=== PATIENT | male | born 1955 | race Caucasian/White ===

== ENCOUNTER 2017-04-15 13:05 | Emergency (ER) | payer BC ==
[2017-04-15 14:01] VITALS: BP 136/78
[2017-04-15] MEDS ORDERED: Ondansetron ODT TAB* 4 MG PO ONE (14:27)
--- NOTE | 2017-04-15 14:29 | UC ---
Abdominal Pain Male HPI - HPI Summary HPI Summary: Pt presents with c/o nausea and vomiting that began 7-10 days ago. Pt reports that ~ 10 days ago he visited a freind who is hosptialized for c-Difficile and began having first episode of loose stools 1 day after visit to friend. Pt reports that he has generalized abdominal discomfort, nausea, frequent diarrhea , daily 3-4 times per day, occasional nausea, decreased appetite, decreased oral intact of fluid and food. Pt states "he just does not feel well" - History of Current Complaint Chief Complaint: UCGI Stated Complaint: VOMITING,DIARRHEA X 7 DAYS Time Seen by Provider: 04/15/17 14:13 Hx Obtained From: Patient Onset/Duration: Sudden Onset, Lasting Days - 7-10, Still Present Timing: Constant - malaise Severity Initially: Mild Severity Currently: Mild Location: Diffuse Radiates: No Character: Colicy, Dull Aggravating Factor(s):: Food Alleviating Factor(s): Nothing Associated Signs And Symptoms: Positive: Decreased Appetite, Vomiting, Diarrhea - Risk Factors Testicular Torsion: Negative Cardiac Risk Factors: Negative - Allergies/Home Medications Allergies/Adverse Reactions: Allergies Allergy/AdvReac Type Severity Reaction Status Date / Time No Known Allergies Allergy Verified 04/15/17 13:42 Home Medications: Home Medications Esomeprazole Magnesium [Nexium 24Hr] 1 cap QPM 04/15/17 [History Confirmed 04/15] Tamsulosin CAP* [Flomax CAP*] 1 cap QPM 04/15/17 [History Confirmed 04/15/17] PMH/Surg Hx/FS Hx/Imm Hx Previously Healthy: Yes GI/ History: Other - BPH Other GI/ History: BPH - Surgical History Surgical History: None - Family History Known Family History: Positive: Cardiac Disease - Social History Occupation: Retired Lives: With Family Alcohol Use: Rare Substance Use Type: None Smoking Status (MU): Never Smoked Tobacco Have You Smoked in the Last Year: No - Immunization History Most Recent Influenza Vaccination: NONE 2015 Most Recent Tetanus Shot: UTD Most Recent Pneumonia Vaccination: NONE Review of Systems Constitutional: Fatigue, Other - malaise Skin: Negative Eyes: Negative ENT: Negative Respiratory: Negative Cardiovascular: Negative Gastrointestinal: Abdominal Pain, Vomiting, Diarrhea, Nausea Genitourinary: Negative Motor: Negative Neurovascular: Negative Musculoskeletal: Negative Neurological: Negative Psychological: Negative All Other Systems Reviewed And Are Negative: Yes Physical Exam Triage Information Reviewed: Yes Appearance: Ill-Appearing Vital Signs: Initial Vital Signs Temp 98.8 F 04/15/17 13:43 Pulse 108 04/15/17 13:43 Resp 18 04/15/17 13:43 BP 136/78 04/15/17 13:43 Pulse Ox 95 04/15/17 13:43 Eye Exam: Normal Eyes: Positive: Other: - sclera white ENT Exam: Normal Neck exam: Normal Respiratory Exam: Normal Cardiovascular Exam: Normal Abdomen Description: Positive: Other: - negative jacques sign, generalized tenderness, no ascites appreciated, no masses appreciated Bowel Sounds: Positive: Present Musculoskeletal Exam: Normal Neurological Exam: Normal Psychological Exam: Normal Skin Exam: Normal Abd Pain Male Course/Dx - Course Course Of Treatment: I discussed iwth the pt the consideration for C-Diff and for gallbladder disease. Pt verbalized understanding and agreed to plan of care. - Differential Dx/Clinical Impression Differential Diagnosis/HQI/PQRI: Gall Bladder Disease, Other - dehydration Provider Diagnoses: abdominal pain. cholecysitis-? C-Diff? Discharge - Discharge Plan Condition: Stable Disposition: HOME Prescriptions: Metronidazole [Flagyl 500 MG TAB] 500 mg PO TID #30 tab Ondansetron [Zofran 8 MG Odt] 8 mg PO Q8H PRN #24 tab PRN Reason: Nausea Patient Education Materials: Acute Diarrhea (ED), Abdominal Pain (ED) Referrals: Non Staff,Doctor [Primary Care Provider] - Additional Instructions: Please follow up with your PCP as soon as possible. If your abdominal pain worsens before you are able to see your PCP, please seek care immediately at the closest Emergency Department.
== END 2017-04-15 15:00 | disposition home or self-care (01) ==
LOC: UCCORT 13:05
DX: R10.9 Unspecified abdominal pain (principal); N40.0 Benign prostatic hyperplasia without lower urinary tract symptoms
CPT/HCPCS: 81003; 82272; 87045; 87046; 87077; 87425; 87493; 87899; 99202; A9270-GY; G0463